=== PATIENT | male | born 1985 | race Caucasian/White ===

== ENCOUNTER 2017-06-07 16:27 | Emergency (ER) | payer OTHER ==
--- NOTE | 2017-06-07 17:23 | ER Document Report ---
ED Medical Screen (RME) - General Chief Complaint: Eye Problem Stated Complaint: EYE PROBLEM Time Seen by Provider: 06/07/17 17:20 Mode of Arrival: Ambulatory Information source: Patient TRAVEL OUTSIDE OF THE [place] IN LAST 30 DAYS: No - HPI Patient complains to provider of: swollen eyelid Onset: Yesterday - pt noticed sweling of R upper eyelide yestereday which has gotten worse this am -- [facility] - Related Data Allergies/Adverse Reactions: No Known Allergies Allergy (Verified 06/07/17 16:28) Physical Exam - Vital signs Vitals: Temp Pulse Resp BP Pulse Ox 99.2 F 61 16 138/85 H 99 06/07/17 17:02 06/07/17 17:02 06/07/17 17:02 06/07/17 17:02 06/07/17 17:02 Course - Vital Signs Vital signs: Temp Pulse Resp BP Pulse Ox 99.2 F 61 16 138/85 H 99 06/07/17 17:02 06/07/17 17:02 06/07/17 17:02 06/07/17 17:02 06/07/17 17:02
[2017-06-07 18:06] LABS: ABSOLUTE EOSINOPHILS # (AUTO) 0.2 10^3/uL (0.0-0.6); ABSOLUTE LYMPHOCYTES (AUTO) 2.4 10^3/uL (0.5-4.7); ABSOLUTE MONOCYTES (AUTO) 0.7 10^3/uL (0.1-1.4); BASOPHILS % (AUTO) 0.5 % (0-2); EOSINOPHILS % (AUTO) 2.5 % (0-6); HEMATOCRIT 46.5 % (37.9-51.0); LYMPHOCYTES % (AUTO) 33.4 % (13-45); MEAN CORPUSCULAR HEMOGLOBIN 31.1 pg (27.0-33.4); MEAN CORPUSCULAR HGB CONC 34.5 g/dL (32.0-36.0); MEAN CORPUSCULAR VOLUME 90 fl (80-97); PLATELET COUNT 310 10^3/uL (150-450); RED BLOOD COUNT 5.15 10^6/uL (4.35-5.55); RED CELL DISTRIBUTION WIDTH 13.9 % (11.5-14.0); SEGMENTED NEUTROPHILS % (AUTO) 54.6 % (42-78); TOTAL CELLS COUNTED % (AUTO) 100 %; WHITE BLOOD COUNT 7.3 10^3/uL (4.0-10.5)
[2017-06-07 18:33] LABS: ALANINE AMINOTRANSFERASE 24 U/L (21-72); ALBUMIN 4.8 g/dL (3.5-5.0); ALKALINE PHOSPHATASE 50 U/L (38-126); ANION GAP 13 (5-19); ASPARTATE AMINO TRANSFERASE 25 U/L (17-59); BILIRUBIN,DIRECT 0.4 mg/dL (0.0-0.4); BILIRUBIN,TOTAL 0.9 mg/dL (0.2-1.3); BLOOD UREA NITROGEN 25 mg/dL (7-20); CARBON DIOXIDE 26 mmol/L (22-30); CHLORIDE 101 mmol/L (98-107); GLUCOSE 83 mg/dL (75-110); POTASSIUM 4.5 mmol/L (3.6-5.0); SODIUM 139.7 mmol/L (137-145)
[2017-06-07] MEDS ORDERED: CLINDAMYCIN HCL 150 MG CAPSULE PO ONE (19:30)
--- NOTE | 2017-06-07 19:37 | ER Document Report ---
ED General - General Chief Complaint: Eye Problem Stated Complaint: EYE PROBLEM Time Seen by Provider: 06/07/17 17:20 Mode of Arrival: Ambulatory TRAVEL OUTSIDE OF THE [place] IN LAST 30 DAYS: No - Related Data Allergies/Adverse Reactions: No Known Allergies Allergy (Verified 06/07/17 16:28) Past Medical History - General Information source: Patient - Social History Smoking Status: Never Smoker Chew tobacco use (# tins/day): No Frequency of alcohol use: None Drug Abuse: None Lives with: Family Family History: Reviewed & Not Pertinent Patient has suicidal ideation: No Patient has homicidal ideation: No Renal/ Medical History: Denies: Hx Peritoneal Dialysis Past Surgical History: Reports: Hx Abdominal Surgery - hernia Physical Exam - Vital signs Vitals: Temp Pulse Resp BP Pulse Ox 99.2 F 61 16 138/85 H 99 06/07/17 17:02 06/07/17 17:02 06/07/17 17:02 06/07/17 17:02 06/07/17 17:02 - Notes Notes: PHYSICAL EXAMINATION: GENERAL: Well-appearing, well-nourished and in no acute distress. HEAD: Atraumatic, normocephalic. EYES: Pupils equal round and reactive to light, extraocular movements intact, sclera anicteric, conjunctiva are normal. ENT: Nares patent, oropharynx clear without exudates. Moist mucous membranes. NECK: Normal range of motion, supple without lymphadenopathy LUNGS: Breath sounds clear to auscultation bilaterally and equal. No wheezes rales or rhonchi. HEART: Regular rate and rhythm without murmurs ABDOMEN: Soft, nontender, nondistended abdomen. Musculoskeletal: Normal range of motion, no pitting or edema. No cyanosis. NEUROLOGICAL: Cranial nerves grossly intact. Normal speech, normal gait. Normal sensory, motor exams PSYCH: Normal mood, normal affect. SKIN: Warm, Dry, normal turgor, no rashes or lesions noted. - HEENT Head: Normocephalic, Atraumatic Eyes: Normal Conjunctiva: Normal Extraocular movements intact: Yes - no pain with movement/no entrapment Eyelashes: Normal Pupils: PERRL Visual acuity- Right eye: 20/20 Visual acuity- Left eye: 20/20 Visual acuity- Both eyes: 20/15-1 Corrective lenses worn: No Nerve palsy: No Visual hernandez normal: No Sinus: Normal Nasal: Normal Notes: Right upper eyelid mildly swollen with erythema and warmth. No abscess formation. Lower eyelid WNL. Course - Vital Signs Vital signs: Temp Pulse Resp BP Pulse Ox 99.2 F 61 16 138/85 H 99 06/07/17 17:02 06/07/17 17:02 06/07/17 17:02 06/07/17 17:02 06/07/17 17:02 - Laboratory Result Diagrams: 06/07/17 17:50 06/07/17 17:50 Laboratory results interpreted by me: 06/07/17 17:50 BUN 25 H Discharge - Discharge Clinical Impression: Cellulitis of eyelid Condition: Stable Disposition: HOME, SELF-CARE Instructions: Antibiotic Therapy ([facility]), Cellulitis ([facility]) Additional Instructions: Follow up with your physician tomorrow for further care or return to the ED IMMEDIATELY if symptoms worsen or new concerns occur. If you cannot afford to follow up with your primary care physician a list of low cost clinics have been provided at the end of your discharge papers as well. Return to the emergency department immediately if you have high fevers, unable to tolerate the antibiotic, change in vision, increased swelling of the area around her eye or any other concerns. Have a wound check in 24 hours either at an urgent care here in the emergency department. Warm soaks to right upper eyelid 5 times daily. Prescriptions: Clindamycin HCl 300 mg PO TID 7 Days #42 capsule Referrals: MACK MARIE PA [Primary Care Provider] - Follow up as needed
[2017-06-07 19:53] VITALS: BP 139/81
== END 2017-06-07 19:55 | disposition home or self-care (01) ==
LOC: ER 16:27
DX: H00.039 Abscess of eyelid unspecified eye, unspecified eyelid (principal)
CPT/HCPCS: 36415; 80053; 85025; 99283